=== PATIENT | male | born 1955 | race Caucasian/White ===

== ENCOUNTER → 2020-09-13 | Outpatient (CLI) | payer BC ==
--- NOTE | 2020-09-13 16:30 | KCIC ---
EXAM: AP, lateral and oblique views of bilateral knees DATE: 09/13/2020 11:09 AM INDICATION: Reason: RT KNEE PAIN BEGAN 07/20, LT KNEE PAIN BEGAN 08/19, NO INJURY / Spl. Instructions: / History: COMPARISON: No Prior FINDINGS: No acute fracture or dislocation. Small left knee joint effusion. No significant right knee joint eff usion. Mild medial compartment joint space narrowing right knee was small osteophytes. Left knee join t spaces are grossly preserved. Joint spaces are preserved without significant degenerative/prolifera tive change. IMPRESSION: 1. Mild right knee joint osteoarthritis. 2. Left knee joint spaces are preserved 3. No evidence of acute fracture or dislocation. 4. Small left knee joint effusion. Electronically signed by: Frerdick Gibson MD (09/13/2020 4:27 PM) [place]
== END ==
LOC: KCIC 11:05
PROVIDERS: ATTEND Family Medicine
DX: M17.11 Unilateral primary osteoarthritis, right knee (principal); M25.462 Effusion, left knee
CPT/HCPCS: 73562-50

== ENCOUNTER → 2020-09-21 | Outpatient (CLI) | payer BC ==
--- NOTE | 2020-09-22 08:31 | KCIC ---
Exam Date: 09/21/2020 2:50 PM MRI LEFT LOWER EXTREMITY JOINT WITHOUT Indication: Reason: LEFT KNEE PAIN / Spl. Instructions: / History: Generalized left knee pain and sw elling since July. NKI.. TECHNIQUE: Routine multiplanar MR imaging of the knee was performed without contrast. COMPARISON: Radiographs from September 13, 2020 FINDINGS: There is a large radial tear in the posterior horn of the medial meniscus. The lateral meniscus is and within normal limits for age. There is prominent soft tissue edema around an otherwise intact medial collateral ligament consistent with a mild sprain. The anterior cruciate ligament, posterior cruciate ligament, and lateral collateral ligament complex are intact. Patellofemoral extensor mechanism and popliteus tendon are within normal limits. Large multifocal full-thickness chondral loss is seen in the patellofemoral compartment with mild to moderate subchondral cystic degenerative changes. Full-thickness chondral loss is identified in the m edial compartment with prominent subchondral degenerative marrow edema in the medial tibial plateau. Small focal full-thickness chondral loss is seen in the lateral compartment with mild subchondral deg enerative marrow edema. Small tricompartment osteophytes are present. No fracture line is seen. There is a small to moderate joint effusion. There is no popliteal cyst. There is diffuse soft tissue edema around the knee. IMPRESSION: There is a large radial tear of the posterior horn of the medial meniscus. There is a mild sprain of the MCL. Tricompartmental full-thickness chondral loss is seen, most prominent in the patellofemoral and media l compartments. Small to moderate joint effusion noted. Electronically signed by: Michele Cabrales MD (09/22/2020 8:28 AM) [id number]
== END ==
LOC: KCIC MRI 14:28
PROVIDERS: ATTEND Family Medicine
DX: S83.242A Other tear of medial meniscus, current injury, left knee, initial encounter (principal); S83.412A Sprain of medial collateral ligament of left knee, initial encounter; M25.462 Effusion, left knee; X58.XXXA Exposure to other specified factors, initial encounter; Y93.89 Activity, other specified; Y92.89 Other specified places as the place of occurrence of the external cause; Y99.8 Other external cause status; M25.762 Osteophyte, left knee
CPT/HCPCS: 73721